=== PATIENT | female | born 1980 | race Caucasian/White ===

== ENCOUNTER 2024-06-04 17:18 | Emergency (ER) | payer OTHER, SELFPAY ==
[2024-06-04 17:22] VITALS: BP 178/105
[2024-06-04 17:48] LABS: % Basophils 0.4 % (0-2); % Eosinophils 0.6 % (0-6); % Immature Granulocytes 0.4 % (0-0.5); % Lymphocytes 32.9 % (20.5-51.1); % Monocytes 5.6 % (1.7-9.3); % Neutrophils 60.1 % (42.2-75.2); Absolute Eosinophils 0.1 10^3/uL (0-0.7); Absolute Lymphocytes 3.3 10^3/uL (1.2-3.4); Absolute Monocytes 0.6 10^3/uL (0.1-0.6); Hematocrit 43.3 % (37.0-47.0); Hemoglobin 15.6 g/dL (12.0-16.0); Mean Corpuscular Volume 85.9 fL (81.0-99.0); Mean Platelet Volume 9.1 fL (7.4-10.4); Nucleated Red Blood Cells % 0 %; Platelet Count 422 10^3/uL (130-400); Red Blood Cell Count 5.04 10^6/uL (4.20-5.40)
[2024-06-04 18:02] LABS: ALT (SGPT) 25 U/L (0-35); AST (SGOT) 22 U/L (14-36); Alkaline Phosphatase 75 U/L (38-126); Blood Urea Nitrogen 8 mg/dl (7-17); Carbon Dioxide 24 mmol/L (22-30); Chloride 103 mmol/L (98-107); Glucose 101 mg/dl (70-99); Potassium 3.4 mmol/L (3.5-5.1); Sodium 143 mmol/L (135-145); Total Bilirubin 0.5 mg/dl (0.2-1.3); Total Protein 7.9 g/dl (6.3-8.2); eGFR > 60.00
[2024-06-04 18:13] LABS: Troponin I < 0.012 ng/ml
[2024-06-04 18:40] VITALS: BP 169/93
[2024-06-04 19:00] VITALS: BP 152/110
[2024-06-04 19:04] VITALS: BP 149/100
--- NOTE | 2024-06-04 19:04 | ED.GENMED ---
History of Present Illness
General
Chief Complaint: Blood Pressure Problem
Source: patient
Exam Limitations: none
Time Seen by Provider: 06/04/24 18:34
History of Present Illness
History of Present Illness:
This is a 43 year old female that comes in with c/o Hypertension. State that she had COVID and she is 3 days post COVID. States that during COVID she noticed that her BP was going up. States that it is still running high and she has had
Palpitations. States that she is SOB with Exertion and she had pain on the left under her ribs that goes around to the back. States that she felt like this when she had Pericarditis. States that she hasn't used her inhaler and she has no appetite.
States that her chest just feels tight States that she has still had a low grade fever of 99.1. States that she was nauseated and had diarrhea on Saturday. States that she has a headache with some dizziness. Denies any chills, abd pain, vomiting,
urinary burning.
Past History
Past History
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
ED Past Surgical History: Orthopedic (Right hip surgery X 3, L5-S1 Surgery)
Social History
Tobacco: Non-smoker
Alcohol: Occasional
Drug: Marijuana (medical)
Personal:
Living: with family
Review of Systems
Review of Systems
All Other Systems: ROS reviewed and negative except as documented in HPI and ROS
Constitutional: Reports fever (low grade); Denies chills
EENT: Reports no symptoms
Respiratory: Reports trouble breathing; Denies cough
Cardiac: Reports other (Chest tightness)
ABD/GI: Reports nausea and diarrhea (On Saturday); Denies abdominal pain or vomiting
: Reports no symptoms; Denies dysuria or urgency
Musculoskeletal: Reports no symptoms
Skin: Reports no symptoms
Neurological: Reports dizzy and headache
Psychiatric: Reports no symptoms
Phy Exam
General Physical Exam
General Presentation: well appearing and no apparent distress
General age: appears stated age
General Skin: warm and dry
General Habitus: normal
General Mental: alert
General Hydration: appears well hydrated
ENT Exam
ENT Exam: TM's normal, pharynx normal and neck supple
Eye Exam
Eye Exam: EOMI
Cardiovascular Exam
Cardiovascular Exam: regular rate/rhythm, no edema, no murmur and normal peripheral pulses
Pulmonary Exam
Pulmonary Exam: lungs clear, no respiratory distress, no rales, chest non tender, no crackles, no rhonchi, no wheezing and no cough
Gastrointestinal Exam
Gastrointestinal Exam: normal bowel sounds, non tender, soft, no organomegaly, no pulsatile mass and non distended
Musculoskeletal Exam
Musculoskeletal Exam: full ROM and no edema
Skin Exam
Skin Exam: normal color, warm/dry, no rash and no petechia
Psychiatric Exam
Psychiatric Exam: normal mood/affect
Course
Orders/Labs/Results
Orders:
Orders
06/04/24 17:28
Electrocardiogram (*1) Urgent
Reason for Study: Palpitations
EKG- Treatment ONCE
06/04/24 17:40
CMP [Comprehensive Metabolic Panel] Urgent
Complete Blood Count/With Diff Urgent
HCG, Serum Qualitative Screen Urgent
Comment: ADD ON
Troponin I Urgent
06/04/24 19:02
CT Chest Pe Study Urgent
Comment: hISTORY OF pERICARDITIS
Reason For Exam: POST covid, sob,
0.9% Sodium Chloride 1000 ml [Nss] 1,000 ml IV BOLUS
Ipratropium/Albuterol Sulfate [Duoneb] 3 ml INH R NOW ONE
06/04/24 19:03
Add On- LAB Urgent
Tests Added?: hcg
06/04/24 19:59
EKG [Electrocardiogram (*1)] Urgent
Reason for Study: Chest Pain
EKG- Treatment ONCE
Abnormal Lab Results
06/04/24
17:40
RDW 11.0 L %
(11.5-14.5)
Plt Count 422 H 10^3/uL
(130-400)
Potassium 3.4 L mmol/L
(3.5-5.1)
Glucose 101 H mg/dl
(70-99)
06/04/24 17:40
06/04/24 17:40
Plt slightly elevated. Glucose nonfasting. troponin <0.012
Vital Signs
Initial and Last Documented VS:
Initial Vital Signs
Temp Pulse Resp BP Pulse Ox
97.8 F 94 18 178/105 99
06/04/24 17:22 06/04/24 17:22 06/04/24 17:22 06/04/24 17:22 06/04/24 17:22
Last Documented Vital Signs
Temp Pulse Resp BP Pulse Ox
97.8 F 82 14 149/100 100
06/04/24 17:22 06/04/24 19:30 06/04/24 19:30 06/04/24 19:04 06/04/24 19:30
MDM/Problems Addressed
Differential Diagnosis Includes:
Hypertension (COVID related),
MDM/Problems Addressed:
This is a 43 year old female that comes in with c/o chest heaviness, SOB, and Hypertension. States that she is post COVID 3 days and that her BP was elevated with COVID but it has not come down. State that her chest feels tight and she has pain
under the left ribs around to the back and she felt like this with Pericarditis.
Will check labs, CT chest, IV fluids and Duo Neb.
back into see patient. Patient was feeling better after the duo neb. Encouraged patient to use her Inhaler as directed. Patient CT is negative for any acute process. Encourage patient to increase her water intake. Use her Xanax to help with her
anxiety. Monitor her BP at home. Follow up with the family doctor for recheck. Feel that this will all even out when she is over COVID. Return with any concerns.
Chronic conditions affecting care:
NA
Acute Exacerbation and/or Progression of Chronic Illness:
NA
*Radiology
Radiology exam reviewed: radiology read reviewed (CT chest-Normal. there is no pulmonary embolism)
*Pulse Oximetry
Patient hypoxic: no
*EKG
Interpreted by ED Provider?: Yes
Heart Rate: 85
Rate: normal
Rhythm: sinus
[place]: normal axis
Interval: normal interval
Ischemia: non-specific ST changes
*[employer] Interpretation
Rate: normal
Heart Rate: 99
Rhythm: sinus
*Critical Care Note
Total Time (30-74mins, 75-104mins- exclusive of procedures): Not Applicable
ED Attending Note
-
Portions of this chart may have been created with voice recognition software.� Occasional wrong word or��sound alike� substitutions may have occurred due to the inherent limitations of voice recognition software.
Discharge Plan
Departure
Patient Disposition: Home (Routine Discharge)
Date of Disposition: 06/04/24
Time of Disposition: 20:41
Patient with high blood pressure during this ER visit?: Yes
Condition: Good
Covid-19: Not Applicable
Discharge Problem:
hypertension post COVID, Asthma, Chest pain
Instructions: Acute Bronchitis, Adult (DC), High Blood Pressure (DC), Chest Pain PCP Follow Up, BLOOD PRESSURE
Prescriptions:
No Action
budesonide-formoterol [Symbicort] 1 PUFF HFA aerosol inhaler
2 puff inhalation BID
albuterol sulfate 1 PUFF HFA aerosol inhaler
1 puff inhalation R Q4HPRN PRN (Reason: asthma)
cetirizine 10 MG tablet
10 mg PO DAILY
hydrocodone-acetaminophen 1 TABLET tablet
1 tab PO Q4HPRN PRN (Reason: pain)
escitalopram oxalate 10 MG tablet
10 mg PO DAILY
cholecalciferol (vitamin D3) 2,000 UNIT tablet
2,000 unit PO DAILY
celecoxib 200 MG capsule
200 mg PO DAILY
tizanidine 2 MG tablet
2 mg PO HS
multivitamin [Daily Multiple] 1 EACH tablet
1 ea PO DAILY
cetirizine 10 MG tablet
10 mg PO DAILY
Referrals:
UNKNOWN - PT DOES,NOT KNOW [Family Provider] -
Activity Restrictions/Additional Instructions:
As discussed your blood work is normal along with your ECG. Your CT of the chest is normal. Please follow up with the family doctor for recheck. Pleas check your BP at home. You must be sitting for 5 min feet flat on the floor with arm level with
the heart. Please increase your water intake to 8-8oz glasses daily. Use your Inhaler as needed for any chest tightness or wheezing. IF YOU HAVE ANY OTHER CONCERNS PLEASE RETURN TO THE EMERGENCY ROOM.
Interventions
Interventions:
*Risk Screen - Suicide Last Done: 06/04/24 19:07
*General Assessment Last Done: 06/04/24 19:07
*Neglect/Abuse Screening Last Done: 06/04/24 19:07
*ED COVID-19 Vaccine History Last Done: 06/04/24 19:07
ED- Cardiac Assessment Last Done: 06/04/24 19:27
ED- Neurological Assessment Last Done: 06/04/24 19:08
ED- Pulmonary Assessment Last Done: 06/04/24 19:08
Discharge Date and Time
Print Language: SPANISH
[2024-06-04 19:07] VITALS: BMI 27.6
[2024-06-04] MEDS: NSS 1000 IV (19:27)
[2024-06-04] MEDS: DUONEB 3 ML INH (19:27)
[2024-06-04 19:38] LABS: HCG, Serum Qualitative Screen Negative
[2024-06-04 20:18] VITALS: BP 160/99
[2024-06-04 21:00] VITALS: BP 135/89
== END 2024-06-04 21:24 | disposition home or self-care (01) ==
LOC: EMR 17:18
PROVIDERS: Student in an Organized Health Care Education/Training Program; EMERGENCY PHYSICIAN Emergency Medicine
DX: R07.89 Other chest pain (principal); I10 Essential (primary) hypertension; J45.909 Unspecified asthma, uncomplicated; Z86.16 Personal history of COVID-19
CPT/HCPCS: 99285; 96360; 94640; 71275; 80053; 84484; 84703; 85025; 93005; Q9967